=== PATIENT | female | born 1980 | race Caucasian/White ===

== ENCOUNTER 2016-05-07 08:46 | Inpatient (IN) | payer OTHER ==
[2016-05-07] MEDS ORDERED: BISACODYL 10 MG SUPP PR PRN (15:13)
[2016-05-07] MEDS ORDERED: POLYETHYLENE GLYCOL 3350 17 GM PKT PO PRN (15:13)
[2016-05-07] MEDS ORDERED: PROCHLORPERAZINE MALEATE 5 MG TAB PO PRN (15:25)
[2016-05-07] MEDS ORDERED: HYDROCODONE/APAP 5/325 TAB PO PRN (15:25)
[2016-05-07] MEDS ORDERED: MAGNESIUM HYDROXIDE 30 ML UDCUP PO PRN (15:25)
[2016-05-07] MEDS ORDERED: LACTULOSE 20 GM/30 ML UDCUP PO PRN (15:25)
[2016-05-07] MEDS ORDERED: SENNOSIDES 1 TAB PO PRN (15:28)
--- NOTE | 2016-05-07 16:37 | GHP ---
POST ADMISSION PHYSICIAN EVALUATION AND REHABILITATION TREATMENT PLAN DATE OF ADMISSION: 05/07/2016 DATE OF EVALUATION: 05/07/2016 TIME OF EVALUATION: 1500 REFERRING FACILITY: [facility] IMPAIRMENT GROUP: 2.1. DATE OF ONSET: 04/25/2016 REFERRING PHYSICIAN: Dr. Eubanks. CONSULTING PHYSICIANS: There were none. 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 ETIOLOGIC DIAGNOSIS: Nontraumatic brain dysfunction. DATE OF SURGERY: 04/25/2016 HISTORY OF PRESENT ILLNESS: Mrs. Hatch developed headaches and some numbness on the right side of her body, and she had a long history of balance problems. Her primary care doctor obtained an MRI of the brain, which showed a 4 cm vermian and left cerebellar hemispheric tumor extending from the superior medullary velum of the 4th ventricle into the quadrigeminal cistern. There was brainstem compression in the area of the tectal plate. She underwent suboccipital craniotomy and resection of the tumor on 04/25/2016. Her postoperative MRI showed good resection of the lesion. 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 She was treated with high-dose dexamethasone, which was tapered off during the course of her hospital stay. She was considered stable for rehabilitation having worked with Physical Therapy and so was transferred to [facility]. STUDIES AND LABS IN THE HOSPITAL: I do not have a full list. There were labs done after surgery on the 27 of April. BMP showed normal renal function and electrolytes. CBC showed hemoglobin of 13.4 and hematocrit of 39.3. White blood cell count was elevated at 17.04. PAST MEDICAL HISTORY: 1. Back pain. 2. Acne. 3. History of cervical fibromuscular dysplasia. 4. Dysmenorrhea. 5. Fatigue. 6. Hand joint pain. PAST SURGICAL HISTORY: She has not had previous surgeries. PREHOSPITAL MEDICATIONS: I do not have a full list. ADMISSION MEDICATIONS: 1. Morphine 1 mg IV q.1 hour p.r.n. 2. Senna/docusate 1 p.o. b.i.d. 3. Scopolamine patch q.72 hours. 4. Prochlorperazine 5 mg p.o. q.6 hours p.r.n. 5. Ondansetron 4 mg p.o. q.8 hours p.r.n. note. 6. Olanzapine 2.5 mg p.o. daily. 7. Milk of magnesia 30 mL p.o. q.12 hours p.r.n. 8. Lactulose 20 g p.o. b.i.d. p.r.n. 9. Ibuprofen 600 mg p.o. q.4 hours p.r.n. 10. Hydrocodone/acetaminophen 5/325, 1 p.o. q.4 hours p.r.n. 11. Heparin 5000 units subcutaneous q.12 hours. 12. Famotidine 20 mg p.o. b.i.d. 13. Diphenhydramine 12.5 mg p.o. q.6 hours p.r.n. 14. Diazepam 5 mg p.o. q.4 hours. 15. Cyclobenzaprine 5 mg p.o. daily p.r.n. 16. Bisacodyl 10 mg rectal daily p.r.n. 17. Acetaminophen 650 mg p.o. q.6 hours p.r.n. ALLERGIES: There is an allergy listed to latex. FAMILY HISTORY: Noncontributory. PSYCHOSOCIAL HISTORY: She is , lives with her . She has 3 children. 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 She is a nonsmoker and uses occasional alcohol. REVIEW OF SYSTEMS: Presently, she is comfortable. She has intermittent headaches which can be as bad as 8/10, and she reports that the headaches are typically relieved after she vomits. Being scheduled on diazepam has helped prevent headaches, and she has associated nausea when she has the headaches. The diazepam again, has help prevent the nausea. She has been treated with olanzapine orally degenerating tablets, as well as ondansetron orally degenerating tablets, and she is not completely clear as to which one has been most effective regarding her nausea. She has double vision and reports that the second image is at an angle and not exactly parallel to the first image. When she looks through both eyes and has the double vision, this could be a trigger for nausea. She reports that she gets a spinning sensation with certain movements for instance, rolling from one side to the other in bed, and she gets nausea along with this. Often it will last for as long as 5 minutes until she vomits. She has had return of appetite today, previously she had very little appetite. She was unable to tolerate solids or liquid oral intake without vomiting. She has had constipation times possibly 2 weeks since her hospital admission. She denies pain. She denies weakness, numbness, or tingling of the extremities. She denies dysuria. She thinks she has had frequent urination. She denies joint pain or joint swelling. She denies skin rash or skin breakdown and otherwise, a 10-point review of systems is negative. PHYSICAL EXAM: VITAL SIGNS: Not yet recorded in the chart. Her weight is 70.3 kg for a body mass index of 24.3. GENERAL: This is a well-nourished, well -developed woman, who appears her chronologic age, lying in bed dressed in street clothes, cooperative, in no acute distress. HEENT: Extraocular movements are intact, but she has dysconjugate gaze and slow saccades on the left. Pupils are equal, round, and reactive to light. Mucous membranes are moist. Dentition is in good condition. There are no oropharyngeal mucosal lesions and no posterior oropharyngeal mucus. NECK: Supple. HEART: There is a regular rate and rhythm with no murmurs, rubs, or gallops. LUNGS: Clear to auscultation bilaterally. ABDOMEN: Soft, nontender, nondistended with normoactive bowel sounds and no hepatosplenomegaly. EXTREMITIES: There is no cyanosis, clubbing, or edema. Radial pulses are 2+ bilaterally. Dorsalis pedis pulses are 1+ bilaterally. NEUROLOGIC: She is alert and oriented x3. Other than a dysconjugate gaze, cranial nerves 2-12 are grossly intact. There is no focal weakness. Sensation is intact to light touch. Deep tendon reflexes are 2+ bilaterally at the biceps and hypoactive at the patellar and Achilles tendons. SKIN: There is a well-healed surgical scar. Her head has not been shaved, so it takes some effort to find on the back of her head underneath her hair. CURRENT LEVEL OF FUNCTION: Per the preadmission screen, regarding diet, feeding , and swallowing she is on a regular diet. She required setup for grooming. She required supervision with a front-wheeled walker to brush her teeth. Regarding bathing, she required minimal assistance. For dressing, she required minimal assistance. For toileting, she required supervision and setup. For bed mobility, she required supervision to contact guard assist. For transfers to a chair, she required minimal assist using a front-wheeled walker. For balance, she needed close standby assist and verbal cues. Standing balance required minimal assist with a device. Her endurance was poor. She was noted to have mild to moderate cognitive issues and to follow simple commands. IMPRESSION: Mrs. Hatch is a 35-year-old woman who had gradual onset of symptoms of poor balance, headaches, and numbness on the right side of her body. An MRI was obtained, which showed a cerebellar tumor. She has undergone surgical resection of the tumor and overall, has done well postsurgically. 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 She has rehabilitation needs with poor balance, need for assistance with ADLs, and possible cognitive impairment. She needs close nursing care regarding fall risk, bowel and bladder skin integrity, and medication and neurologic education. She will require care from the rehabilitation physician regarding pain control, nausea, vomiting, and risk for neurologic deterioration. She will have therapy with Physical Therapy, Occupational Therapy, and Speech and Language Pathology on a modified schedule for 30-60 minutes per day for each discipline on 7 days per week to total 15 hours per week or more. Her expected duration of stay is 12-14 days. It is anticipated that after discharge, she will continue to benefit from home health services, including speech and language pathology, occupational therapy, and physical therapy. ASSESSMENT AND PLAN: 1. Debility status post excision of cerebellar ependymoma. Physical and occupational therapies to optimize mobility and functional status. 2. Possible cognitive impairment following craniotomy. Assessment and treatment per Speech and Language Pathology. 3. Nausea and vomiting. Continue diazepam on a scheduled basis as ordered out of the hospital, as well as a scopolamine patch, and continue the as needed medications which were ondansetron, olanzapine, and prochlorperazine. It will be determined during her stay which of these is most effective, and it is hoped that nausea will become less of a problem. 4. Headaches. She reports that she has been doing well with ibuprofen and acetaminophen. It is unknown whether or not opiates have contributed to her nausea and vomiting, but hydrocodone/acetaminophen will be left onboard in case she has pain, which is refractory to ibuprofen and acetaminophen. 5. Constipation. Will schedule polyethylene glycol, as well as senna, and continue the as-needed medications as ordered out of the hospital, which are lactulose and magnesium hydroxide. 6. Prophylaxis. She comes out of the hospital on heparin 5000 units subcutaneous q.12 hours. This will be continued until her mobility improves. She is also treated with famotidine, which will give her some protection against gastric ulcers with the heparin, plus the ibuprofen. Followup. She is to follow up with Dr. Eubanks 1-2 weeks after discharge from inpatient rehabilitation. Her sutures and/or nj can be removed on 2016. /[id number]/MODL MTDD
[2016-05-07] MEDS: DIAZEPAM 5 MG TAB PO SCH ×2 (18:21→20:49)
[2016-05-07] MEDS: IBUPROFEN 600 MG TAB PO PRN (20:49)
[2016-05-07] MEDS: FAMOTIDINE 20 MG TAB PO SCH (20:50)
[2016-05-07] MEDS: ONDANSETRON DISINTEGRATING 4 MG TAB PO PRN (20:50)
[2016-05-07] MEDS: HEPARIN 5,000 UNIT/0.5 ML SYR SC SCH (20:50)
[2016-05-07] MEDS: SENNOSIDES 1 TAB PO SCH (20:50)
[2016-05-08] MEDS: DIAZEPAM 5 MG TAB PO SCH ×6 (02:35→21:04)
[2016-05-08] MEDS: ONDANSETRON DISINTEGRATING 4 MG TAB PO PRN ×3 (02:39→17:06)
[2016-05-08] MEDS: IBUPROFEN 600 MG TAB PO PRN (06:22)
[2016-05-08] MEDS: PROCHLORPERAZINE MALEATE 10 MG TAB PO PRN (08:47)
[2016-05-08] MEDS: SCOPOLAMINE HYDROBROMIDE 1.5 MG PATCH TD SCH (08:49)
[2016-05-08] MEDS: FAMOTIDINE 20 MG TAB PO SCH ×2 (08:50→20:13)
[2016-05-08] MEDS: HEPARIN 5,000 UNIT/0.5 ML SYR SC SCH ×2 (12:53→20:12)
[2016-05-08] MEDS: POLYETHYLENE GLYCOL 3350 17 GM PKT PO SCH (12:57)
[2016-05-08] MEDS: SENNOSIDES 1 TAB PO SCH ×2 (12:57→20:13)
--- NOTE | 2016-05-08 12:59 | SOAPPROG ---
SOAP Progress Note Assessment/Plan: Assessment: 1. Debility status post excision of cerebellar ependymoma. Physical and occupational therapies to optimize mobility and functional status. 2. Possible cognitive impairment following craniotomy. Assessment and treatment per Speech and Language Pathology. 3. Nausea and vomiting. Continue diazepam on a scheduled basis as ordered out of the hospital, as well as a scopolamine patch, and continue the as needed medications which were ondansetron, olanzapine, and prochlorperazine. It will be determined during her stay which of these is most effective, and it is hoped that nausea will become less of a problem. 4. Headaches. She reports that she has been doing well with ibuprofen and acetaminophen. It is unknown whether or not opiates have contributed to her nausea and vomiting, but hydrocodone/acetaminophen will be left onboard in case she has pain, which is refractory to ibuprofen and acetaminophen. 5. Constipation. Will schedule polyethylene glycol, as well as senna, and continue the as-needed medications as ordered out of the hospital, which are lactulose and magnesium hydroxide. 6. Prophylaxis. She comes out of the hospital on heparin 5000 units subcutaneous q.12 hours. This will be continued until her mobility improves. She is also treated with famotidine, which will give her some protection against gastric ulcers with the heparin, plus the ibuprofen. Followup. She is to follow up with Dr. Eubanks 1-2 weeks after discharge from inpatient rehabilitation. Her sutures and/or nj can be removed on 2016. Plan: 05/08/16 12:59 Objective: Vital Signs Temp Pulse Resp BP Pulse Ox 36.8 C 68 14 111/63 93 05/08/16 06:38 05/08/16 06:38 05/08/16 06:38 05/08/16 06:38 05/08/16 06:38 05/07/16 05/08/16 05/09/16 05:59 05:59 05:59 Intake Total 1100 700 Output Total 350 Balance 750 700 ICD10 Worksheet Patient Problems: Problems Problem Status Onset Ependymoma of brain Acute S/P craniotomy Acute
[2016-05-08] MEDS: OLANZapine 2.5 MG TAB PO SCH (13:00)
--- NOTE | 2016-05-08 13:00 | PDOREHIP ---
Admission IRF-[facility] - Admission - 3 Day Assessment Period Admission Date/Day 1: 05/07/16 Day 2: 05/08/16 Day 3: 05/09/16 - Active Diagnoses Comorbidities and Co-existing Conditions at Admission: 51689. None of the Above - Skin Conditions Unhealed Pressure Ulcer (1 or more/Stage 1 or >)-Admission: 0. No
--- NOTE | 2016-05-08 15:14 | SOAPPROG ---
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 Physical and occupational therapies to optimize mobility and functional status. 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 Assessment and treatment per Speech and Language Pathology. * Nausea and vomiting. Oversedated; will change diazepam from 5 mg Q 4 hr scheduled to PRN. Continue scopolamine patch, and continue PRN ondansetron, olanzapine, and prochlorperazine. Ondansetron seems to be most helpful. * Constipation. Continue bowel protocol with polyethylene glycol, as well as senna. Continue the as-needed medications as ordered out of the hospital, which are lactulose and magnesium hydroxide. * Headaches. She reports that she has been doing well with ibuprofen and acetaminophen. * Prophylaxis. She comes out of the hospital on heparin 5000 units subcutaneous q.12 hours. This will be continued until her mobility improves. She is also treated with famotidine, which will give her some protection against gastric ulcers with the heparin, plus the ibuprofen. Followup. She is to follow up with Dr. Eubanks 1-2 weeks after discharge from inpatient rehabilitation. Her sutures and/or nj can be removed on 2016. 05/08/16 15:08 Subjective: Quite sleepy on scheduled diazepam but no vomiting and less nausea. Small bowel movement with suppository yesterday. Not in pain. Objective: Vital Signs Temp Pulse Resp BP Pulse Ox 36.8 C 68 14 111/63 93 05/08/16 06:38 05/08/16 06:38 05/08/16 06:38 05/08/16 06:38 05/08/16 06:38 05/07/16 05/08/16 05/09/16 05:59 05:59 05:59 Intake Total 1100 1090 Output Total 350 Balance 750 1090 Physical Exam - Physical Exam General Appearance: WD/WN, alert, no apparent distress Respiratory: No respiratory distress, No accessory muscle use Skin: normal color, warm/dry Neuro/Psych: alert, normal mood/affect, oriented x 3, other (sleepy but maintains alertness through encounter.) ICD10 Worksheet Patient Problems: Problems Problem Status Onset Ependymoma of brain Acute S/P craniotomy Acute
[2016-05-09] MEDS: PROCHLORPERAZINE MALEATE 10 MG TAB PO PRN (03:39)
[2016-05-09] MEDS: IBUPROFEN 600 MG TAB PO PRN ×3 (03:39→21:19)
[2016-05-09] MEDS: DIAZEPAM 5 MG TAB PO SCH ×2 (04:09→06:33)
[2016-05-09] MEDS: ONDANSETRON DISINTEGRATING 4 MG TAB PO PRN ×3 (07:24→15:32)
[2016-05-09] MEDS ORDERED: DIAZEPAM 5 MG TAB PO PRN (09:05)
[2016-05-09] MEDS: POLYETHYLENE GLYCOL 3350 17 GM PKT PO SCH (09:26)
[2016-05-09] MEDS: FAMOTIDINE 20 MG TAB PO SCH ×2 (09:27→20:46)
[2016-05-09] MEDS: SENNOSIDES 1 TAB PO SCH ×2 (09:27→20:46)
[2016-05-09] MEDS: OLANZapine 2.5 MG TAB PO SCH (09:27)
[2016-05-09] MEDS: HEPARIN 5,000 UNIT/0.5 ML SYR SC SCH ×2 (09:29→20:46)
--- NOTE | 2016-05-09 09:51 | SOAPPROG ---
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 Initial FIM 80 on 05/09. Walked 120' FWW CGA to Peggy. Did 3 stairs CGA. Continue physical and occupational therapies to optimize mobility and functional status. 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 Assessment and treatment per Speech and Language Pathology. * Nausea and vomiting. Oversedated; will change diazepam from 5 mg Q 4 hr scheduled to PRN. Continue scopolamine patch, and continue PRN ondansetron, olanzapine, and prochlorperazine. Had emesis today 05/09/16 after activity with PT. Ondansetron seems to be most helpful. D/C olanzapine 05/09/16. * Constipation. Continue bowel protocol with polyethylene glycol, as well as senna. Continue the as-needed medications as ordered out of the hospital, which are lactulose and magnesium hydroxide. * Headaches. She reports that she has been doing well with ibuprofen and acetaminophen. * Prophylaxis. She comes out of the hospital on heparin 5000 units subcutaneous q.12 hours. This will be continued until her mobility improves. She is also treated with famotidine, which will give her some protection against gastric ulcers with the heparin, plus the ibuprofen. Followup. She is to follow up with Dr. Eubanks 1-2 weeks after discharge from inpatient rehabilitation. Her sutures and/or nj can be removed on 2016. Oncology follow-up TBD. Expect 2 week LOS with discharge home approx . 05/09/16 12:47 Subjective: Feeling better. Has not used diazepam since yesterday morning. Had some nausea but no vomiting. Appetite returning but cautious re eating due to fear of N/V. No double vision this morning. Objective: Vital Signs Temp Pulse Resp BP Pulse Ox 36.3 C 85 16 110/72 94 05/08/16 19:55 05/08/16 19:55 05/08/16 19:55 05/08/16 19:55 05/08/16 19:55 03/07/17 03/08/17 03/09/17 05:59 05:59 05:59 Intake Total 1100 2230 Output Total 350 Balance 750 2230 - Time Spent With Patient Time Spent With Patient: Greater than 35 minutes floor time today, including more than 50% of time in coordination of care during staffing meeting, and counseling patient. Physical Exam - Physical Exam General Appearance: WD/WN, alert, no apparent distress Respiratory: normal breath sounds, No crackles, No rhonchi, No wheezing Cardiac/Chest: regular rate, rhythm, edema (trace B LE) Skin: normal color, warm/dry Neuro/Psych: alert, normal mood/affect, oriented x 3 ICD10 Worksheet Patient Problems: Problems Problem Status Onset Ependymoma of brain Acute S/P craniotomy Acute
[2016-05-10] MEDS: ONDANSETRON DISINTEGRATING 4 MG TAB PO PRN (07:13)
[2016-05-10] MEDS: SENNOSIDES 1 TAB PO SCH ×3 (09:40→20:57)
[2016-05-10] MEDS: FAMOTIDINE 20 MG TAB PO SCH ×2 (09:40→20:57)
[2016-05-10] MEDS: POLYETHYLENE GLYCOL 3350 17 GM PKT PO SCH ×2 (09:40→16:19)
[2016-05-10] MEDS: HEPARIN 5,000 UNIT/0.5 ML SYR SC SCH ×2 (09:41→20:57)
[2016-05-10] MEDS: ONDANSETRON DISINTEGRATING 4 MG TAB PO SCH ×2 (13:19→20:57)
--- NOTE | 2016-05-10 13:29 | SOAPPROG ---
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 Initial FIM 80 on 05/09. Walked 120' FWW CGA to Peggy. Did 3 stairs CGA. Continue physical and occupational therapies to optimize mobility and functional status. 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 Has mild deficits to attention and memory. Continue treatment per Speech and Language Pathology. * Nausea and vomiting. Not using diazepam. Will schedule ondansetron QID. Continue scopolamine patch, and continue PRN prochlorperazine. D/C'd olanzapine 05/09/16. * Constipation. Continue bowel protocol with polyethylene glycol, as well as senna. Continue the as-needed medications as ordered out of the hospital, which are lactulose and magnesium hydroxide. * Headaches. Adequate treatment with PRN ibuprofen and acetaminophen. No HAs since 05/08/16. * Prophylaxis. She comes out of the hospital on heparin 5000 units subcutaneous q.12 hours. This will be continued until her mobility improves. She is also treated with famotidine, which will give her some protection against gastric ulcers with the heparin, plus the ibuprofen. Followup. She is to follow up with Dr. Eubanks 1-2 weeks after discharge from inpatient rehabilitation. Her sutures and/or nj can be removed on 2016. Oncology follow-up TBD. Expect 2 week LOS with discharge home approx . 05/10/16 13:15 Subjective: Has not been having headaches. Sleeping well. Several episodes of nausea and vomiting yesterday and today. She finds ondansetron to be the most helpful. Objective: Vital Signs Temp Pulse Resp BP Pulse Ox 36.5 C 74 14 110/70 95 05/10/16 07:54 05/10/16 07:54 05/10/16 07:54 05/10/16 07:54 05/10/16 07:54 05/09/16 05/10/16 05/11/16 05:59 05:59 05:59 Intake Total 2230 3054 887 Balance 2230 3054 887 Physical Exam - Physical Exam General Appearance: WD/WN, alert, no apparent distress Respiratory: No normal breath sounds, No respiratory distress Skin: normal color, warm/dry Neuro/Psych: alert, normal mood/affect, oriented x 3 ICD10 Worksheet Patient Problems: Problems Problem Status Onset Ependymoma of brain Acute S/P craniotomy Acute
[2016-05-11] MEDS: ONDANSETRON DISINTEGRATING 4 MG TAB PO SCH ×4 (06:37→21:26)
[2016-05-11] MEDS: IBUPROFEN 600 MG TAB PO PRN (08:53)
[2016-05-11] MEDS: SCOPOLAMINE HYDROBROMIDE 1.5 MG PATCH TD SCH (09:00)
[2016-05-11] MEDS: FAMOTIDINE 20 MG TAB PO SCH ×2 (09:00→21:26)
[2016-05-11] MEDS: HEPARIN 5,000 UNIT/0.5 ML SYR SC SCH ×2 (09:00→21:26)
[2016-05-11] MEDS: POLYETHYLENE GLYCOL 3350 17 GM PKT PO SCH (09:01)
[2016-05-11] MEDS: SENNOSIDES 1 TAB PO SCH ×2 (09:01→21:26)
[2016-05-11] MEDS: PROCHLORPERAZINE MALEATE 10 MG TAB PO PRN (09:21)
--- NOTE | 2016-05-11 10:44 | SOAPPROG ---
SOAP Progress Note Assessment/Plan: Assessment: 35 yo F with ependymoma and left cerebellar hemisphere and vermis extending into the superior medullary vellum and 4th ventricle into the quadrigeminal cistern, with brainstem compression, s/p surgical excision 04/25/16. 05/11 biggest issue is diplopia. All medical issues are new to this provider. N/V improved, related to vision as well. OK to patch * Debility status post excision of cerebellar ependymoma. Initial FIM 80 on 05/09. Walked 120' FWW CGA to Peggy. Did 3 stairs CGA. Continue physical and occupational therapies to optimize mobility and functional status. 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 Has mild deficits to attention and memory. Continue treatment per Speech and Language Pathology. * Nausea and vomiting. Not using diazepam. Scheduled ondansetron QID. Continue scopolamine patch, and continue PRN prochlorperazine. D/C'd olanzapine 05/09/16. * Constipation. Continue bowel protocol with polyethylene glycol, as well as senna. Continue the as-needed medications as ordered out of the hospital, which are lactulose and magnesium hydroxide. Related to visual changes as well as tumor location. * Headaches. Adequate treatment with PRN ibuprofen and acetaminophen. No HAs since 05/08/16. * Prophylaxis. She comes out of the hospital on heparin 5000 units subcutaneous q.12 hours. This will be continued until her mobility improves. She is also treated with famotidine, which will give her some protection against gastric ulcers with the heparin, plus the ibuprofen. * Diplopia: post surgery, L eye involvement with torsional control issue as well. 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 OK to patch Followup. She is to follow up with Dr. Eubanks 1-2 weeks after discharge from inpatient rehabilitation. Her sutures and/or nj can be removed on 2016. Oncology follow-up TBD. Expect 2 week LOS with discharge home approx . 05/11/16 10:39 Subjective: CC: diplopia and nausea No acute events overnight, pt with improved nausea on ondansetron and scopolamine. Related somewhat to movement of head and vision. 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 Feels better with patching, currently with tape over glasses. No new neuro changes. 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 VFI.), No normal mood/affect (Feels down and overwhelmed related to injury. ) ICD10 Worksheet Patient Problems: Problems Problem Status Onset Diplopia Acute Ependymoma of brain Acute S/P craniotomy Acute - ICD10 Problem Qualifiers (1) Diplopia
[2016-05-12] MEDS: IBUPROFEN 600 MG TAB PO PRN ×5 (00:15→20:45)
[2016-05-12] MEDS: ONDANSETRON DISINTEGRATING 4 MG TAB PO SCH ×4 (05:33→20:45)
[2016-05-12] MEDS: ACETAMINOPHEN 325 MG TAB PO PRN ×2 (07:37→15:07)
[2016-05-12] MEDS: FAMOTIDINE 20 MG TAB PO SCH ×2 (07:37→20:45)
[2016-05-12] MEDS: HEPARIN 5,000 UNIT/0.5 ML SYR SC SCH ×2 (07:39→20:46)
[2016-05-12] MEDS: POLYETHYLENE GLYCOL 3350 17 GM PKT PO SCH (07:40)
[2016-05-12] MEDS: SENNOSIDES 1 TAB PO SCH ×2 (07:40→20:45)
[2016-05-12] MEDS: PROCHLORPERAZINE MALEATE 10 MG TAB PO PRN (10:39)
--- NOTE | 2016-05-12 15:40 | SOAPPROG ---
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 * Debility status post excision of cerebellar ependymoma. Initial FIM 80 on 05/09. Walked 120' FWW CGA to Peggy. Did 3 stairs CGA. Continue physical and occupational therapies to optimize mobility and functional status. 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 Has mild deficits to attention and memory. Continue treatment per Speech and Language Pathology. * Nausea and vomiting. Not using diazepam. Scheduled ondansetron QID. Continue scopolamine patch, and continue PRN prochlorperazine. D/C'd olanzapine 05/09/16. Can trial meclizine for effect but will avoid concurrent use of all anticholinergics * Constipation. Continue bowel protocol with polyethylene glycol, as well as senna. Continue the as-needed medications as ordered out of the hospital, which are lactulose and magnesium hydroxide. Related to visual changes as well as tumor location. * Headaches. Adequate treatment with PRN ibuprofen and acetaminophen. No HAs since 05/08/16. * Prophylaxis. She comes out of the hospital on heparin 5000 units subcutaneous q.12 hours. This will be continued until her mobility improves. She is also treated with famotidine, which will give her some protection against gastric ulcers with the heparin, plus the ibuprofen. * Diplopia: post surgery, L eye involvement with torsional control issue as well. 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 OK to patch Followup. She is to follow up with Dr. Eubanks 1-2 weeks after discharge from inpatient rehabilitation. Her sutures and/or nj can be removed on 2016. Oncology follow-up TBD. Expect 2 week LOS with discharge home approx . 05/11/16 10:39 Subjective: Ongoing issues reported with nausea and emesis despite current regiment. Would like to trial anything, discussed current meds and options. No pain currently. Objective: Vital Signs Temp Pulse Resp BP Pulse Ox 36.7 C 56 L 16 106/59 L 95 05/12/16 07:52 05/12/16 07:52 05/12/16 07:52 05/12/16 07:52 05/12/16 07:52 05/11/16 05/12/16 05/13/16 05:59 05:59 06:59 Intake Total 5934 6980 Output Total 400 6411 372 Balance 2359 -20 -650 - Pending Discharge Pending Discharge Within 24 Hours: No Pending Discharge Within 48 Hours: No Physical Exam - Physical Exam General Appearance: alert, no apparent distress EENT: other (Left eye patched) Neck: supple Respiratory: lungs clear, normal breath sounds, No respiratory distress Cardiac/Chest: regular rate, rhythm Abdomen: non-tender, soft Skin: normal color, warm/dry Neuro/Psych: alert, normal mood/affect, oriented x 3, No cognition abnormalities , No speech abnormalities ICD10 Worksheet Patient Problems: Problems Problem Status Onset Diplopia Acute Ependymoma of brain Acute S/P craniotomy Acute
[2016-05-12] MEDS: MECLIZINE HCL 25 MG TAB PO PRN (17:51)
[2016-05-13] MEDS: IBUPROFEN 600 MG TAB PO PRN ×3 (03:40→20:43)
[2016-05-13] MEDS: ONDANSETRON DISINTEGRATING 4 MG TAB PO SCH ×4 (06:27→20:43)
[2016-05-13] MEDS: ACETAMINOPHEN 325 MG TAB PO PRN ×2 (07:41→15:44)
[2016-05-13] MEDS: HEPARIN 5,000 UNIT/0.5 ML SYR SC SCH ×2 (07:41→20:43)
[2016-05-13] MEDS: FAMOTIDINE 20 MG TAB PO SCH ×2 (07:41→20:43)
[2016-05-13] MEDS: MECLIZINE HCL 25 MG TAB PO PRN (07:42)
--- NOTE | 2016-05-13 10:30 | SOAPPROG ---
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 * Debility status post excision of cerebellar ependymoma. Initial FIM 80 on 05/09. Walked 120' FWW CGA to Peggy. Did 3 stairs CGA. Continue physical and occupational therapies to optimize mobility and functional status. 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 Has mild deficits to attention and memory. Continue treatment per Speech and Language Pathology. * Nausea and vomiting. Not using diazepam. Scheduled ondansetron QID. Continue scopolamine patch, and continue PRN prochlorperazine. D/C'd olanzapine 05/09/16. Better symptoms on meclizine yesterday, will avoid concurrent use of all anticholinergics (consider d/c prochlorperazine if cont to improve) * Constipation. Continue bowel protocol with polyethylene glycol, as well as senna. Continue the as-needed medications as ordered out of the hospital, which are lactulose and magnesium hydroxide. Related to visual changes as well as tumor location. * Headaches. Adequate treatment with PRN ibuprofen and acetaminophen. No HAs since 05/08/16. * Prophylaxis. She comes out of the hospital on heparin 5000 units subcutaneous q.12 hours. This will be continued until her mobility improves. She is also treated with famotidine, which will give her some protection against gastric ulcers with the heparin, plus the ibuprofen. * Diplopia: post surgery, L eye involvement with torsional control issue as well. 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 OK to patch Followup. She is to follow up with Dr. Eubanks 1-2 weeks after discharge from inpatient rehabilitation. Her sutures and/or nj can be removed on 2016. Oncology follow-up TBD. Expect 2 week LOS with discharge home approx . Subjective: Reported much improved nausea and no emesis last night or this a.m. following switch to meclizine. Will CTM. Denies pain currently. 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
[2016-05-13] MEDS: SENNOSIDES 1 TAB PO SCH ×2 (11:48→21:00)
[2016-05-13] MEDS: POLYETHYLENE GLYCOL 3350 17 GM PKT PO SCH (11:49)
[2016-05-14] MEDS: ONDANSETRON DISINTEGRATING 4 MG TAB PO SCH ×4 (06:14→20:51)
[2016-05-14] MEDS: IBUPROFEN 600 MG TAB PO PRN ×2 (06:14→20:51)
[2016-05-14] MEDS: FAMOTIDINE 20 MG TAB PO SCH ×2 (08:02→20:50)
[2016-05-14] MEDS: SCOPOLAMINE HYDROBROMIDE 1.5 MG PATCH TD SCH (08:02)
[2016-05-14] MEDS: HEPARIN 5,000 UNIT/0.5 ML SYR SC SCH ×2 (08:02→20:51)
[2016-05-14] MEDS: MECLIZINE HCL 25 MG TAB PO PRN (08:53)
[2016-05-14] MEDS: ACETAMINOPHEN 325 MG TAB PO PRN ×2 (10:09→17:01)
--- NOTE | 2016-05-14 15:52 | SOAPPROG ---
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 * Debility status post excision of cerebellar ependymoma. Initial FIM 80 on 05/09. Walked 120' FWW CGA to Peggy. Did 3 stairs CGA. Continue physical and occupational therapies to optimize mobility and functional status. 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 Has mild deficits to attention and memory. Continue treatment per Speech and Language Pathology. * Nausea and vomiting. Related to visual changes as well as tumor location. Not using diazepam. Scheduled ondansetron QID. Continue scopolamine patch. D/ C'd olanzapine 05/09/16. Stopping prochlorperazine, scheduling meclizine for now given excellent response. * Constipation. Continue bowel protocol with polyethylene glycol, as well as senna. Continue the as-needed medications as ordered out of the hospital, which are lactulose and magnesium hydroxide. * Headaches. Adequate treatment with PRN ibuprofen and acetaminophen. No HAs since 05/08/16. * Prophylaxis. She comes out of the hospital on heparin 5000 units subcutaneous q.12 hours. This will be continued until her mobility improves. She is also treated with famotidine, which will give her some protection against gastric ulcers with the heparin, plus the ibuprofen. * Diplopia: post surgery, L eye involvement with torsional control issue as well. 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 OK to patch, however therapies may do selective taping of glasses lenses to facilitate recovery. Requested that these sessions be confined to the end of the day as they will often increase nausea and could otherwise compromise other therapy participation. If taping interferes with other therapies, plan to exclusively patch. Followup. She is to follow up with Dr. Eubanks 1-2 weeks after discharge from inpatient rehabilitation. Her sutures and/or nj can be removed on 2016. Oncology follow-up TBD. Expect 2 week LOS with discharge home approx . Subjective: CC: Nausea and vision changes No acute events overnight. She was experiencing nausea today after doing vision exercises in OT. She endorsed that nausea was caused by head movements and diplopia. scheduled for an appointment with neurosurgery today. Nausea improved with meclizine PRN, OK to schedule it. counseled on relationship with vision therapy and nausea, OK to patch or participate in vision therapy as tolerated. Otherwise slept well, no pain. Objective: Vital Signs Temp Pulse Resp BP Pulse Ox 36.7 C 81 16 122/75 H 96 05/13/16 19:43 05/13/16 19:43 05/13/16 19:43 05/13/16 19:43 05/13/16 19:43 05/13/16 05/14/16 05/15/16 05:59 05:59 05:59 Intake Total 1236 236 Output Total 400 Balance 1236 -164 Physical Exam - Physical Exam General Appearance: alert, mild distress (Nauseated, in bed) EENT: other (tape on left lens), No scleral icterus (R), No scleral icterus (L) Respiratory: lungs clear, normal breath sounds, No respiratory distress, No accessory muscle use Cardiac/Chest: normal peripheral pulses, regular rate, rhythm Abdomen: normal bowel sounds, non-tender, soft Skin: normal color, warm/dry Extremities: No pedal edema, No swelling Neuro/Psych: alert, other (diploipa unchanged) ICD10 Worksheet Patient Problems: Problems Problem Status Onset Diplopia Acute Ependymoma of brain Acute Nausea & vomiting Acute S/P craniotomy Acute - ICD10 Problem Qualifiers (1) Diplopia (2) Nausea & vomiting Qualifiers: Vomiting type: V Vomiting Intractability: V
[2016-05-14] MEDS: SENNOSIDES 1 TAB PO SCH ×2 (16:23→20:50)
[2016-05-14] MEDS: POLYETHYLENE GLYCOL 3350 17 GM PKT PO SCH (16:23)
[2016-05-14] MEDS: MECLIZINE HCL 25 MG TAB PO SCH (20:51)
[2016-05-15] MEDS: IBUPROFEN 600 MG TAB PO PRN ×2 (02:00→17:21)
[2016-05-15] MEDS: ONDANSETRON DISINTEGRATING 4 MG TAB PO SCH ×4 (06:20→20:13)
[2016-05-15] MEDS: HEPARIN 5,000 UNIT/0.5 ML SYR SC SCH ×2 (08:15→20:12)
[2016-05-15] MEDS: FAMOTIDINE 20 MG TAB PO SCH ×2 (08:15→20:12)
[2016-05-15] MEDS: ACETAMINOPHEN 325 MG TAB PO PRN (08:15)
[2016-05-15] MEDS: MECLIZINE HCL 25 MG TAB PO SCH ×2 (08:16→20:13)
[2016-05-15] MEDS: SENNOSIDES 1 TAB PO SCH ×2 (08:16→20:13)
--- NOTE | 2016-05-15 15:12 | SOAPPROG ---
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 Initial FIM 80 on 05/09. Walked 120' FWW CGA to Peggy. Did 3 stairs CGA. Continue physical and occupational therapies to optimize mobility and functional status. 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 Has mild deficits to attention and memory. Continue treatment per Speech and Language Pathology. * Nausea and vomiting. Improved on schedule meclizine BID, ondansetron QID and scopolamine patch. * Constipation. Continue bowel protocol with polyethylene glycol, as well as senna. Continue the as-needed medications as ordered out of the hospital, which are lactulose and magnesium hydroxide. * Headaches. Adequate treatment with PRN ibuprofen and acetaminophen. No HAs since 05/08/16. * Prophylaxis. She comes out of the hospital on heparin 5000 units subcutaneous q.12 hours. This will be continued until her mobility improves. She is also treated with famotidine, which will give her some protection against gastric ulcers with the heparin, plus the ibuprofen. Followup. She is to follow up with Dr. Eubanks 1-2 weeks after discharge from inpatient rehabilitation. Oncology follow-up TBD. Expect 2 week LOS with discharge home approx 05/21/16. 05/15/16 15:10 Subjective: Had ophthalmology visit today. Rx'd prism glasses for L eye. Reassured that there is no other issue besides 4th nerve palsy. Emesis X 1 yesterday afternoon , o/w doing better with meclizine. Objective: Vital Signs Temp Pulse Resp BP Pulse Ox 36.6 C 77 16 121/68 H 99 05/15/16 08:00 05/15/16 08:00 05/15/16 08:00 05/15/16 08:00 05/15/16 08:00 05/14/16 05/15/16 05/16/16 05:59 05:59 05:59 Intake Total 1236 1586 Output Total 400 Balance 1236 1186 Physical Exam - Physical Exam General Appearance: WD/WN, alert, no apparent distress Respiratory: No respiratory distress, No accessory muscle use Skin: normal color, warm/dry Neuro/Psych: alert, normal mood/affect, oriented x 3 ICD10 Worksheet Patient Problems: Problems Problem Status Onset Diplopia Acute Ependymoma of brain Acute Nausea & vomiting Acute S/P craniotomy Acute
[2016-05-15] MEDS: POLYETHYLENE GLYCOL 3350 17 GM PKT PO SCH (20:24)
[2016-05-16] MEDS: ONDANSETRON DISINTEGRATING 4 MG TAB PO SCH ×4 (06:06→21:12)
[2016-05-16] MEDS: POLYETHYLENE GLYCOL 3350 17 GM PKT PO SCH (08:51)
[2016-05-16] MEDS: FAMOTIDINE 20 MG TAB PO SCH ×2 (08:54→21:12)
[2016-05-16] MEDS: MECLIZINE HCL 25 MG TAB PO SCH ×2 (08:54→21:12)
[2016-05-16] MEDS: SENNOSIDES 1 TAB PO SCH ×2 (08:54→21:20)
[2016-05-16] MEDS: HEPARIN 5,000 UNIT/0.5 ML SYR SC SCH (08:54)
[2016-05-16] MEDS: ACETAMINOPHEN 325 MG TAB PO PRN ×2 (09:00→21:11)
--- NOTE | 2016-05-16 11:38 | SOAPPROG ---
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 Initial FIM 80 on 05/09, improved to 92 on 05/16/16. Walked 200' FWW CGA to Peggy. Did 15 stairs CGA. Set-up to SBA for ADLs except CGA for shower t'magnus.Continue physical and occupational therapies to optimize mobility and functional status. * Cognitive: working on higher-level tasks. Get fatigue. Advised to limit screen time and other stimulation. Continue treatment per Speech and Language Pathology. * Nausea and vomiting. Improved on schedule meclizine BID, ondansetron QID and scopolamine patch. Eating small, frequent meals. * Constipation. Continue bowel protocol with polyethylene glycol, as well as senna. Continue the as-needed medications as ordered out of the hospital, which are lactulose and magnesium hydroxide. * Headaches. Adequate treatment with PRN ibuprofen and acetaminophen. No HAs since 05/08/16. * Prophylaxis. She comes out of the hospital on heparin 5000 units subcutaneous q.12 hours. This will be discontinued 05/16/16 with improvement mobility. Attended staffing, 15 min. 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 Attended family meeting, 30 min, patient and in attendance. Plan for discharge home on 05/18/16, with home PT & OT. 05/16/16 11:32 Subjective: No complaints. N/V much improved; tolerating therapies without stimulating N/V. Objective: Vital Signs Temp Pulse Resp BP Pulse Ox 37 C 52 L 16 142/67 H 92 05/16/16 08:00 05/16/16 08:00 05/16/16 08:00 05/16/16 08:00 05/16/16 08:00 05/15/16 05/16/16 05/17/16 05:59 05:59 05:59 Intake Total 1586 1850 Output Total 400 Balance 1186 1850 - Time Spent With Patient Time Spent With Patient: Greater than 35 minutes floor time today, including more than 50% of time in coordination of care during staffing meeting, and counseling patient and during family meeting. Physical Exam - Physical Exam General Appearance: WD/WN, alert, no apparent distress Respiratory: No respiratory distress, No accessory muscle use Skin: normal color, warm/dry Neuro/Psych: alert, normal mood/affect, oriented x 3, other (Working on balance exercises at rail with PT, wearing L eye patch.) ICD10 Worksheet Patient Problems: Problems Problem Status Onset Diplopia Acute Ependymoma of brain Acute Nausea & vomiting Acute S/P craniotomy Acute
[2016-05-16] MEDS: IBUPROFEN 600 MG TAB PO PRN (16:11)
[2016-05-17] MEDS: ACETAMINOPHEN 325 MG TAB PO PRN ×2 (06:35→20:11)
[2016-05-17] MEDS: ONDANSETRON DISINTEGRATING 4 MG TAB PO SCH ×4 (06:35→20:11)
[2016-05-17] MEDS: MECLIZINE HCL 25 MG TAB PO SCH ×2 (06:35→20:11)
[2016-05-17] MEDS: FAMOTIDINE 20 MG TAB PO SCH ×2 (06:35→20:11)
[2016-05-17] MEDS: SCOPOLAMINE HYDROBROMIDE 1.5 MG PATCH TD SCH (09:12)
[2016-05-17] MEDS: POLYETHYLENE GLYCOL 3350 17 GM PKT PO SCH (09:13)
[2016-05-17] MEDS: SENNOSIDES 1 TAB PO SCH ×2 (09:13→20:11)
[2016-05-17] MEDS: IBUPROFEN 600 MG TAB PO PRN ×2 (09:37→14:31)
--- NOTE | 2016-05-17 10:50 | PDOREHIP ---
Admission [facility] - Admission - 3 Day Assessment Period Admission Date/Day 1: 05/07/16 Day 2: 05/08/16 Day 3: 05/09/16 Discharge [facility] - Discharge - 3 Day Assessment Period 2 Days Prior to Anticipated Discharge Date: 05/16/16 1 Day Prior to Anticipated Discharge Date: 05/17/16 Anticipated Discharge Date: 05/18/16 - Discharge Skin Conditions Unhealed Pressure Ulcer (1 or more/Stage 1 or >)-Discharge: 0. No
--- NOTE | 2016-05-17 13:01 | SOAPPROG ---
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 Initial FIM 80 on 05/09, improved to 92 on 05/16/16. Walked 200' FWW CGA to Peggy. Did 15 stairs CGA. Set-up to SBA for ADLs except CGA for shower t'magnus. Continue physical and occupational therapies to optimize mobility and functional status. * Cognitive: working on higher-level tasks. Gets fatigue. Advised to limit screen time and other stimulation. Continue treatment per Speech and Language Pathology. * Nausea and vomiting. Improved on schedule meclizine BID, ondansetron QID and scopolamine patch. Eating small, frequent meals. Discussed order of tapering meds at home over several days: advised to reduce ondansetron first, then to D/C ; then remove scopolamine patch, then finally stop meclizine. * Diplopia and 4th nerve palsy. Using eye patch. Follow-up with ophthalmology. * Constipation. Continue bowel protocol with polyethylene glycol, as well as senna. Continue the as-needed medications as ordered out of the hospital, which are lactulose and magnesium hydroxide. * Headaches. Adequate treatment with PRN ibuprofen and acetaminophen. No HAs since 05/08/16. * Prophylaxis. She comes out of the hospital on heparin 5000 units subcutaneous q.12 hours. This will be discontinued 05/16/16 with improvement mobility. Mrs. Hatch requires a front-wheeled walker. She has a mobility limitation that significantly impairs one or more mobility-related ADLs in the home, and she can use a walker safely, and her functional mobility deficit cannot be resolved with a cane. Plan for discharge home on 05/18/16, with home PT & OT. Follow-up with Dr. Eubanks , Neurosurgery , and PCP Isma Waldron. 05/17/16 12:55 Subjective: No complaints. Happy to be going home tomorrow. No emesis X 2 days. Good appetite, sleeping well. Objective: Vital Signs Temp Pulse Resp BP Pulse Ox 36.1 C 87 12 107/61 95 05/17/16 11:39 05/17/16 11:39 05/17/16 11:39 05/17/16 11:39 05/17/16 11:39 05/16/16 05/17/16 05/18/16 05:59 05:59 05:59 Intake Total 1850 968 120 Balance 1850 968 120 Physical Exam - Physical Exam General Appearance: WD/WN, alert, no apparent distress Respiratory: No respiratory distress, No accessory muscle use Skin: normal color, warm/dry Neuro/Psych: alert, normal mood/affect, oriented x 3, abnormal gait (slow but o/ w wnl with FWW) ICD10 Worksheet Patient Problems: Problems Problem Status Onset Diplopia Acute Ependymoma of brain Acute Nausea & vomiting Acute S/P craniotomy Acute
[2016-05-17 20:26] VITALS: O2SAT 96
[2016-05-18] MEDS: IBUPROFEN 600 MG TAB PO PRN ×2 (04:01→08:21)
[2016-05-18] MEDS: ONDANSETRON DISINTEGRATING 4 MG TAB PO SCH ×2 (06:29→11:38)
[2016-05-18] MEDS: ACETAMINOPHEN 325 MG TAB PO PRN (06:31)
[2016-05-18 07:26] VITALS: BP 105/51; PULSE 67; RESP 16; TEMP 98.4
[2016-05-18] MEDS: MECLIZINE HCL 25 MG TAB PO SCH (08:51)
[2016-05-18] MEDS: SENNOSIDES 1 TAB PO SCH (08:51)
[2016-05-18] MEDS: FAMOTIDINE 20 MG TAB PO SCH (08:51)
[2016-05-18] MEDS: POLYETHYLENE GLYCOL 3350 17 GM PKT PO SCH (08:52)
[2016-05-18] MEDS ORDERED: oxyCODONE IR 5 MG TAB PO PRN (11:14)
--- NOTE | 2016-05-21 23:01 | GDS ---
[f rep st] DISCHARGE SUMMARY ADMITTING DIAGNOSIS: Debility status post craniotomy for cerebellar ependymoma. DISCHARGE DIAGNOSIS: Debility status post craniotomy for cerebellar ependymoma. OTHER DIAGNOSES: Nausea, vomiting and diplopia. CONSULTATIONS: None. PROCEDURES: None. COMPLICATIONS: None. HISTORY/HOSPITAL COURSE: Mrs. Hatch was admitted from [facility]. She had headaches, right-sided numbness and balance problems, which had gradually worsened. 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 There was brain stem compression from it. She underwent suboccipital craniotomy and resection of the tumor on 04/25/2016. She had postoperative diplopia due to a 4th nerve palsy, and nausea and vomiting. She was otherwise stabilized and transferred to [facility] for further care. She went through a number of different medications in order to stabilize the nausea and vomiting. Ultimately, she was doing well with meclizine scheduled twice a day, ondansetron scheduled 4 times a day, and a scopolamine patch. Once these symptoms were adequately controlled, she was able to progress in therapies. Her initial functional independence measure (FIM) was 80 on 2016. This is consistent with threshold between retirement facility and assisted living level of care. She improved to a FIM of 92 on 05/16/2016, which is consistent with assisted living level of care. She was able to walk 200 feet with a front-wheeled walker and contact guard to minimal assistance. She was able to climb and descend 15 stairs with contact guard assist. She needed setup or standby assist for activities of daily living, except for shower transfers for which she required contact guard assist. Regarding cognition, she did quite well with Speech and Language Pathology. She was noted to have cognitive fatigue. She was advised to limit screen time and other stimulation. Regarding diplopia, she was treated with an eye patch. She had a followup with Ophthalmology which confirmed that this was a 4th nerve palsy. She had headaches when she first came in which were treated with ibuprofen and acetaminophen on an as-needed basis. She had no headaches since 05/08/2016 by the day of discharge. She required a front-wheeled walker for safe mobility. There were no labs or studies done during her stay. DISCHARGE PLAN: Condition upon discharge is good. Activity is ad oxana, but she requires contact guard to minimal assistance for ambulation and for shower transfers. DIET: Regular. FOLLOWUP: Date of next appointment: She has followups with Dr. Eubanks of Neurosurgery and with her primary care provider, Dr. Isma Waldron, at the [facility]. MEDICATIONS AT DISCHARGE: 1. Ibuprofen 600 mg p.o. q.4 hours p.r.n. headache. 2. Famotidine 20 mg p.o. b.i.d. 3. Acetaminophen 650 mg p.o. q.6 hours p.r.n. 4. Senna 1 tab p.o. b.i.d. 5. Scopolamine transdermal change q.72 hours. 6. Polyethylene glycol 17 g p.o. daily. 7. Ondansetron 4 mg p.o. four times daily. 8. Meclizine 25 mg p.o. b.i.d. ISSUES TO ADDRESS AT FOLLOWUP: 1. Functional status. She will continue physical and occupational therapies at home and she can follow up with primary care provider, Dr. Waldron, regarding how she is doing and whether home therapies should be continued. 2. Ependymoma, status post craniotomy and excision. She can follow up with Dr. Eubanks. Dr. Eubanks and Dr. Waldron can determine whether she needs to see [facility]. 3. 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 She has an eye patch and she can follow up with [facility]. 4. Nausea and vomiting, likely related to diplopia. She was advised to attempt to taper medications. Meclizine seemed to be the most effective medication that was finally added and achieved control, so she was advised to first tapers the ondansetron, then see if she can do without the scopolamine patch, and finally she could taper the meclizine if she remained symptom free. 5. Constipation, a significant issue during her stay. The relief of constipation contributed to a reduction in nausea and vomiting. She should continue her laxatives. It is likely that when she is taking fewer anticholinergic medications she will have less constipation. /[id number]/MODL MTDD
== END 2016-05-18 12:45 | disposition home health service (06) | DRG 949 ==
LOC: BREH 14:48
PROVIDERS: ADMIT Internal Medicine; ATTEND Internal Medicine
PROC: F0636ZZ Communicative/Cognitive Integration Skills Treatment of Neurological System - Whole Body (ICD-10-PCS; principal; 2016-05-07)
PROC: F07M3ZZ Motor Function Treatment of Musculoskeletal System - Whole Body (ICD-10-PCS; principal; 2016-05-07)
PROC: F08Z7ZZ Vocational Activities and Functional Community or Work Reintegration Skills Treatment (ICD-10-PCS; principal; 2016-05-07)
DX: Z48.3 Aftercare following surgery for neoplasm (principal); C71.6 Malignant neoplasm of cerebellum; R53.81 Other malaise; G31.84 Mild cognitive impairment of uncertain or unknown etiology; R11.2 Nausea with vomiting, unspecified; R51 Headache; H49.12 Fourth [trochlear] nerve palsy, left eye; H53.2 Diplopia; K59.00 Constipation, unspecified; R41.840 Attention and concentration deficit; R41.3 Other amnesia
CPT/HCPCS: 92507-GN; 92522-GN; 97110-GO; 97110-GP; 97112-GP; 97116-GP; 97162-GP; 97166-GO; 97530-GO; 97530-GP; 97532-GO; 97535-GO; 99366-GO